=== PATIENT | female | born 1960 | race Caucasian/White ===

== ENCOUNTER 2019-08-04 07:01 | Inpatient (IN) ==
[2019-08-01 10:19] LABS: Basophils % 0.5 % (0.0-0.8); Eosinophils # 0.2 10*3/uL (0.0-0.87); Eosinophils % 2.4 % (0.00-10.9); Hematocrit 35.1 VOL% (35.7-47.0); Hemoglobin 11.5 GM/DL (12.0-16.0); Immature Granulocytes % 0.2 %; Immature Granulocytes Absolute 0.02 #; Lymphocytes # 3.7 10*3/uL (1.4-4.0); Lymphocytes % 43.1 % (21.3-54.2); Mean Corpuscular HGB Conc 32.8 GM/DL (32-36); Mean Corpuscular Volume 99.4 FL (87-102); Mean Platelet Volume 9.9 FL (9.6-12.0); Monocytes % 5.5 % (1.7-12.7); Neutrophils % 48.3 % (38.7-73.9); Platelet Count 186 T/CUMM (130-400); Red Blood Count 3.53 MC/CUMM (3.8-5.5); Red Cell Distribution Width 12.2 % (9.3-17.3); White Blood Count 8.7 T/CUMM (4-12)
[2019-08-01 10:49] LABS: Osmolality,Calculated 275.5 MOS/KG (273-304)
[~2019-08-04 07:01] MED LIST: LACTATED RINGERS 1,000 ML IV SCH; ceFAZolin 1,000 MG VIAL ONE; ceFAZolin 1,000 MG in SYRINGE 1 EACH IV ONE
[2019-08-04] MEDS ORDERED: GABAPENTIN 400 MG CAPSULE PO STA (07:33)
[2019-08-04] MEDS ORDERED: HEPARIN 5,000 UNIT/1 ML VIAL ONE (07:38)
[2019-08-04] MEDS ORDERED: DIAZEPAM 5 MG TABLET ONE (07:41)
[2019-08-04] MEDS ORDERED: FAMOTIDINE 20 MG TABLET ONE (07:41)
[2019-08-04] MEDS ORDERED: GABAPENTIN 400 MG CAPSULE ONE (07:41)
[2019-08-04] MEDS ORDERED: VANCOMYCIN 1,000 MG VIAL ONE (07:42)
[2019-08-04] MEDS ORDERED: FAMOTIDINE 20 MG TABLET PO STA (07:42)
[2019-08-04] MEDS ORDERED: DIAZEPAM 5 MG TABLET PO STA (07:42)
[2019-08-04] MEDS ORDERED: THROMBIN TOPICAL (RECOMBINANT) 5,000 UNIT VIAL TOP ONE (07:42)
[2019-08-04] MEDS ORDERED: TISSUE ADHESIVE 1 EACH APPLICATOR TOP ONE (09:59)
[2019-08-04] MEDS ORDERED: ONDANSETRON 4 MG/2 ML VIAL IV PRN ×2 (10:05→10:40)
[2019-08-04] MEDS ORDERED: tiZANidine 4 MG TABLET PO PRN (10:07)
[2019-08-04] MEDS ORDERED: HEPARIN/NACL 0.9% 2 UNITS/ML 500 ML IV ONE (10:21)
[2019-08-04] MEDS ORDERED: PROPOFOL 200 MG/20 ML VIAL IV ONE (10:21)
[2019-08-04] MEDS ORDERED: GLYCOPYRROLATE 0.4 MG/2 ML VIAL ONE (10:22)
[2019-08-04] MEDS ORDERED: SEVOFLURANE 1 UNIT/15 MINUTE INH ONE (10:22)
[2019-08-04] MEDS ORDERED: fentaNYL 100 MCG/2 ML VIAL ONE (10:22)
[2019-08-04] MEDS ORDERED: ETOMIDATE 40 MG/20 ML VIAL IV ONE (10:22)
[2019-08-04] MEDS ORDERED: DEXAMETHASONE 4 MG/1 ML VIAL ONE (10:22)
[2019-08-04] MEDS ORDERED: MIDAZOLAM 2 MG/2 ML VIAL ONE (10:22)
[2019-08-04] MEDS ORDERED: HEPARIN 10,000 UNIT/10 ML VIAL ONE (10:22)
[2019-08-04] MEDS ORDERED: NEOSTIGMINE 10 MG/10 ML VIAL ONE (10:23)
[2019-08-04] MEDS ORDERED: ROCURONIUM 100 MG/10 ML VIAL IV ONE (10:23)
[2019-08-04] MEDS ORDERED: SODIUM CHLORIDE 0.9% 100 ML IV ONE (10:23)
[2019-08-04] MEDS: HYDROmorphone 2 MG/1 ML VIAL IV PRN ×4 (10:35→11:00)
[2019-08-04] MEDS: LACTATED RINGERS 1,000 ML IV SCH (12:05)
[2019-08-04] MEDS: DICLOFENAC 1% GEL 100 GM TUBE TOP SCH ×3 (14:10→20:48)
[2019-08-04] MEDS: oxyCODONE/ACETAMINOPHEN 5-325 MG TABLET PO SCH ×2 (14:19→18:19)
[2019-08-04] MEDS: GABAPENTIN 600 MG TABLET PO SCH ×2 (14:20→20:46)
[2019-08-05] MEDS: LACTATED RINGERS 1,000 ML IV SCH ×2 (00:01→08:13)
[2019-08-05] MEDS: HYDROmorphone 2 MG/1 ML VIAL IV PRN ×2 (04:02→08:13)
[2019-08-05] MEDS: oxyCODONE/ACETAMINOPHEN 5-325 MG TABLET PO SCH ×3 (06:05→11:16)
[2019-08-05 06:08] LABS: Hematocrit 34.2 VOL% (35.7-47.0); Hemoglobin 10.8 GM/DL (12.0-16.0)
[2019-08-05 06:20] LABS: Calcium 8.6 MG/DL (8.5-10.1); Osmolality,Calculated 285.1 MOS/KG (273-304)
[2019-08-05] MEDS: GABAPENTIN 600 MG TABLET PO SCH (08:51)
[2019-08-05] MEDS: DICLOFENAC 1% GEL 100 GM TUBE TOP SCH (08:57)
[2019-08-05] MEDS: BUPRENORPHINE HCL 600 MCG BUCCAL SCH ×2 (08:59)
[2019-08-05] MEDS ORDERED: ASPIRIN CHEW 81 MG TABLET PO SCH (09:00)
[2019-08-05] MEDS ORDERED: CLOPIDOGREL 75 MG TABLET PO SCH (09:00)
[2019-08-05] MEDS ORDERED: ENALAPRIL 5 MG TABLET PO SCH (09:00)
[2019-08-05 11:42] VITALS: BP 128/46
== END 2019-08-05 13:45 | disposition home or self-care (01) | DRG 272 ==
LOC: N.SDSINP 07:01 → N.OR 07:01 → N.SDSINP 07:02 → EDSTATUS 09:30 → EDSDCBED 11:19 → N.SDSINP 11:19 → N.3E 11:19 → N.OR 08-05 13:45 → UNDODEPSDC 08-06 09:06
PROVIDERS: ADMIT Surgery; ATTEND Surgery